=== PATIENT | male | born 1980 | race Caucasian/White ===

== ENCOUNTER 2018-07-04 22:31 | Emergency (ER) | payer SELFPAY ==
[~2018-07-04] VITALS: Ht 157.5 cm; Wt 103.0 kg
[2018-07-04 22:35] VITALS: BP 158/79; Ht 157.5 cm; Wt 103.0 kg
== END 2018-07-04 23:48 | disposition home or self-care (01) ==
LOC: ED 22:31
DX: H60.91 Unspecified otitis externa, right ear (principal); E11.9 Type 2 diabetes mellitus without complications
CPT/HCPCS: 82962

== ENCOUNTER 2019-04-27 08:27 | Emergency (ER) | payer MEDICAID ==
[~2019-04-27] VITALS: Ht 165.1 cm; Wt 99.3 kg
[2019-04-27 08:37] VITALS: Ht 165.1 cm; Wt 99.3 kg
[2019-04-27 10:51] VITALS: BP 115/72
== END 2019-04-27 10:51 | disposition home or self-care (01) ==
LOC: ED 08:27
DX: S83.91XA Sprain of unspecified site of right knee, initial encounter (principal); L60.0 Ingrowing nail; X58.XXXA Exposure to other specified factors, initial encounter; Y93.89 Activity, other specified; Y92.89 Other specified places as the place of occurrence of the external cause; Y99.8 Other external cause status
CPT/HCPCS: J2001; Q0092

== ENCOUNTER 2019-05-23 17:41 | Emergency (ER) | payer MEDICAID ==
[~2019-05-23] VITALS: Ht 160 cm; Wt 99.1 kg
[2019-05-23 19:10] VITALS: Ht 160 cm; Wt 99.1 kg
[2019-05-23 21:03] LABS: BASOPHIL % 0.3 % (0-2); PLATELET COUNT 150 x10^3mcL (130-400); RED CELL DISTRIBUTION WIDTH 13.2 % (11.5-14.5)
[2019-05-23 21:04] LABS: UA SPECIFIC GRAVITY 1.025 (1.005-1.035); microscopic required? YES; urine erythrocyte NEGATIVE (NEGATIVE)
[2019-05-23 21:13] LABS: CALCIUM 8.4 mg/dL (8.5-10.1); CARBON DIOXIDE 25.4 mmol/L (21-32); CHLORIDE SERUM 101 mmol/L (98-107); CREATININE SERUM 0.7 mg/dL (0.7-1.3); GFR1 > 60 mL/min; GLUCOSE SERUM 180 mg/dL (74-106); POTASSIUM SERUM 3.6 mmol/L (3.5-5.1); SODIUM SERUM 136 mmol/L (136-145)
[2019-05-23 21:34] LABS: ALBUMIN 3.7 g/dL (3.4-5.0); ALKALINE PHOSPHATASE 108 U/L (46-116); AST/SGOT 20 U/L (15-37); BILIRUBIN TOTAL 0.49 mg/dL (0.20-1.00)
[2019-05-23 21:44] LABS: TOTAL PROTEIN, SERUM 8.6 g/dL (6.4-8.2)
[2019-05-23 21:56] LABS: ALT/SGPT 102 U/L (16-63)
[2019-05-23 22:17] VITALS: BP 129/76
== END 2019-05-23 22:17 | disposition home or self-care (01) ==
LOC: ED 17:41
PROVIDERS: Emergency Medicine
DX: L03.311 Cellulitis of abdominal wall (principal); L73.1 Pseudofolliculitis barbae
CPT/HCPCS: J1885; J3490; J7030

== ENCOUNTER 2019-10-15 20:26 | Emergency (ER) | payer MEDICAID ==
[~2019-10-15] VITALS: Ht 160 cm; Wt 98.1 kg
[2019-10-15 20:33] VITALS: BP 145/93; Ht 160 cm; Wt 98.1 kg
== END 2019-10-15 21:07 | disposition home or self-care (01) ==
LOC: ED 20:26
DX: S05.02XA Injury of conjunctiva and corneal abrasion without foreign body, left eye, initial encounter (principal); W26.8XXA Contact with other sharp object(s), not elsewhere classified, initial encounter; Y93.89 Activity, other specified; Y92.89 Other specified places as the place of occurrence of the external cause; Y99.8 Other external cause status